=== PATIENT | female | born 1950 ===

== ENCOUNTER → 2017-07-30 | Outpatient (CLI) | payer OTHER | END | disposition home or self-care (01) | LOC: RAD 12:28 | DX: S82.899D Other fracture of unspecified lower leg, subsequent encounter for closed fracture with routine healing (principal) ==

== ENCOUNTER → 2018-02-06 | Day surgery (SDC) | payer OTHER ==
[~2018-02-06] MED LIST: CRESTOR10 MG PO; FOLGARD TABLET1 EACH PO; SYNTHROID150 MCG PO; [UNRECOGNIZED DRUG - OTHER] PO
== END | disposition home or self-care (01) ==
LOC: ADM 02-03 11:45 → CIR.AMB 06:00
DX: S93.05XA Dislocation of left ankle joint, initial encounter (principal); S86.312A Strain of muscle(s) and tendon(s) of peroneal muscle group at lower leg level, left leg, initial encounter